=== PATIENT | female | born 1990 | race American Indian/Alaskan Native ===

== ENCOUNTER 2020-10-12 14:13 | Emergency (ER) | payer OTHER, MEDICAID ==
[2020-10-12 14:34] VITALS: BP 141/77
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
[2020-10-12 15:52] LABS: Bilirubin,Urine NEG (Negative); Blood,Urine NEG (Negative); Color,Urine Yellow (Yellow); Mucus,Urine FEW /HPF; Protein,Urine <15 mg/dL mg/dL (Negative); Urobilinogen,Urine < 2.0 mg/dL (<2.0)
[2020-10-12 16:16] LABS: Basophils % (Auto) 0.4 % (0.0-1.8); Eosinophils # (Auto) 0.1 K/mm3 (0.0-0.4); Hematocrit 32.3 % (30.3-42.9); Hemoglobin 10.7 gm/dl (10.1-14.3); Lymphocytes # (Auto) 1.4 K/mm3 (1.2-5.4); Lymphocytes % (Auto) 16.6 % (13.4-35.0); Mean Corpuscular HGB Conc 33 % (30-34); Mean Corpuscular Volume 98 fl (79-97); Monocytes # (Auto) 0.5 K/mm3 (0.0-0.8); Monocytes % (Auto) 6.4 % (0.0-7.3); Platelet Count 248 K/mm3 (140-440); Red Blood Count 3.31 M/mm3 (3.65-5.03); Red Cell Distribution Width 13.4 % (13.2-15.2)
[2020-10-12 16:25] LABS: Alanine Aminotransferase 10 units/L (7-56); Albumin 3.4 g/dL (3.9-5); Blood Urea Nitrogen 9 mg/dL (7-17); Calcium 8.5 mg/dL (8.4-10.2); Hemolysis Index 4
[2020-10-12 16:53] LABS: BUN/Creatinine Ratio 13
== END 2020-10-12 17:13 | disposition home or self-care (01) ==
LOC: ED 14:13
DX: O26.892 Other specified pregnancy related conditions, second trimester (principal); S39.012A Strain of muscle, fascia and tendon of lower back, initial encounter; S39.011A Strain of muscle, fascia and tendon of abdomen, initial encounter; Z3A.18 18 weeks gestation of pregnancy; Z79.1 Long term (current) use of non-steroidal anti-inflammatories (NSAID); Z79.2 Long term (current) use of antibiotics; Z79.899 Other long term (current) drug therapy; V49.49XA Driver injured in collision with other motor vehicles in traffic accident, initial encounter; Y93.89 Activity, other specified; Y92.89 Other specified places as the place of occurrence of the external cause; Y99.8 Other external cause status
CPT/HCPCS: 36415; 76805; 80053; 81001; 84702; 85025

== ENCOUNTER 2021-03-11 21:54 | Inpatient (IN) | payer MEDICAID ==
[2021-03-11] MEDS ORDERED: OXYTOCIN 10 UNIT/1 ML INJ ONE (21:57)
[2021-03-11] MEDS ORDERED: MINERAL OIL 30 ML ORAL LIQD ONE (21:57)
[2021-03-11] MEDS ORDERED: OXYTOCIN DRIP 30,000 MILLIUNITS/500 ML BAG IV ONE (22:03)
[2021-03-11] MEDS ORDERED: TERBUTALINE 1 MG/1 ML INJ SUB-Q PRN (22:19)
[2021-03-11] MEDS ORDERED: LIDOCAINE (2%) 20 MG/1 ML VIAL 20 ML MDV INFILTRATI ONE (22:19)
[2021-03-11] MEDS ORDERED: ePHEDrine SULFATE 50 MG/1 ML INJ IV PRN (22:19)
[2021-03-11] MEDS ORDERED: MINERAL OIL 30 ML ORAL LIQD PO PRN (22:19)
[2021-03-11] MEDS ORDERED: LACTATED RINGERS 1,000 ML IV SCH (22:30)
[2021-03-11] MEDS ORDERED: HYDROCORTISONE 25 MG RECTAL SUPP PR PRN (22:35)
[2021-03-11] MEDS ORDERED: LANOLIN/ZINC/DIMETHICONE (LANSINOH) 7 GM TP PRN (22:35)
[2021-03-11] MEDS ORDERED: WITCH HAZEL/ GLYCERIN PAD TP PRN (22:35)
[2021-03-11] MEDS ORDERED: MAGNESIUM HYDROXIDE (MOM) ORAL LIQD UDC PO PRN (22:35)
--- NOTE | 2021-03-11 22:39 | History and Physical Report ---
History of Present Illness Date of examination: 03/11/21 Date of admission: 03/11/21 21:56 Chief complaint: Contractions, leaking water, need to push History of present illness: 30 year old female presents to L&D with complaint of leaking of water and contractions. Patient received care at [facility] and partial records are available. EDC 03/10/2021. Patient has had 2 previous sections at term (2011 and 2015). significant for the following: trichomonas (treated), GBS bacteriuria, prior section times 2. labs are not available with exception of horizon test showed alpha thalassemia silent carrier. Past History Past Medical History: no pertinent history Past Surgical History: section (2 previous sections) [employer] History: trichomonas (treated during this ). denies: abnormal PAP smear, chlamydia, gonorrhea, hepatitis B, herpes, HIV, syphilis Family/Genetic History: none Social history: lives with family, full code. denies: smoking, alcohol abuse, prescription drug abuse, IV drug use - Obstetrical History Expected Date of Delivery: 03/10/21 Actual Gestation: 40 Week(s) 1 Day(s) : 3 Para: 2 Hx # Term Pregnancies: 2 Number of Pregnancies: 0 Spontaneous Abortions: 0 Induced : 0 Number of Living Children: 2 Medications and Allergies Allergies Allergy/AdvReac Type Severity Reaction Status Date / Time No Known Allergies Allergy Unverified 05/13/14 19:18 Home Medications Medication Instructions Recorded Confirmed Last Taken Type Vit Calc,Iron,Folic 1 each PO DAILY #30 tablet 09/01/16 03/11/21 Unknown Rx [ Vitamins] Active Meds: Active Medications Ephedrine Sulfate (Ephedrine Sulfate 50 Mg/1 Ml Inj) 10 mg IV Q2M PRN PRN Reason: Hypotension Lactated Ringer's (Lactated Ringers) 1,000 mls @ 125 mls/hr IV DIRECT SAAD Oxytocin/Sodium Chloride (Pitocin/Ns 30 Unit/500ml) 30 units in 500 mls @ 40 mls/hr IV TITR SAAD; Protocol Mineral Oil (Mineral Oil 30 Ml Oral Liqd) 30 ml PO QHS PRN PRN Reason: Constipation Terbutaline Sulfate (Terbutaline 1 Mg/1 Ml Inj) 0.25 mg SUB-Q ONCE PRN PRN Reason: Hyperstimulation/Hypertonicity Review of Systems All systems: negative - Vital Signs Vital signs: Vital Signs Pulse BP 92 H 144/80 03/11/21 22:08 03/11/21 22:08 Temp Pulse Resp BP Pulse Ox 80 143/93 03/11/21 22:23 03/11/21 22:23 - Physical Exam Abdomen: Positive: normal appearance, soft. Negative: distention, tenderness, guarding, rigidity Genitourinary (Female): Positive: normal external genitalia, normal perenium. Negative: perineal/vulvar lesions Vagina: Positive: other (thick meconium fluid noted) Uterus: Positive: enlarged. Negative: tender Anus/Rectum: Positive: normal perianal skin Extremities: Positive: normal. Negative: tenderness, edema - Obstetrical FHR: category 2 Uterine Contraction Monitor Mode: External Cervical Dilatation: 10 Cervical Effacement Percentage: 100 station: +2 Uterine Contraction Pattern: Regular Uterine Contraction Intensity: Strong/Firm Results Result Diagrams: 03/11/21 22:07 All other labs normal. Assessment and Plan A: at 40 weeks, 1 day gestation. Active labor; advanced cervical dilation. GBS positive. 2 previous cesaren sections. P: Admit. upon presentation to L&D (see delivery note).
--- NOTE | 2021-03-11 22:41 | Procedure Note ---
OB Delivery Note - Delivery Date of Delivery: 03/04/21 Surgeon: KAUR WHEELER Estimated blood loss: <100cc - Vaginal Delivery presentation: vertex Delivery position: OA Intrapartum events: meconium, precipitous labor- <3hr Delivery induction: none Delivery monitor: external FHT Route of delivery: Delivery placenta: spontaneous Delivery cord: 3 umbilical vessels Episiotomy: none Delivery laceration: none Anesthesia: none Delivery comments: A: Spontaneous vaginal delivery at 22:00 of liveborn male weighing 2.835 kg over intact perineum with apgars of 8/9. Baby was vigorous at and was placed skin to skin with mom right after delivery. Spontaneous cry and respirations. 3 vessel cord double clamped and cut and baby taken to radiant warmer for suctioning due to meconium stained amniotic fluid. Cord blood obtained. Spontaneous delivery of intact placenta and membranes. EBL <100 cc. Pitocin to IV fluids after delivery of placenta. Fundus firm and midline. No lacerations noted. Vaginal sweep negative. Sponge count correct. Mother and baby stable. Dr. Calderón notified of precipitous delivery.
[2021-03-11 22:58] LABS: Basophils % (Auto) 0.3 % (0.0-1.8); Eosinophils % (Auto) 0.1 % (0.0-4.3); Hematocrit 37.1 % (30.3-42.9); Hemoglobin 12.4 gm/dl (10.1-14.3); Lymphocytes # (Auto) 1.6 K/mm3 (1.2-5.4); Lymphocytes % (Auto) 15.2 % (13.4-35.0); Mean Corpuscular HGB Conc 34 % (30-34); Mean Corpuscular Volume 95 fl (79-97); Monocytes # (Auto) 1.1 K/mm3 (0.0-0.8); Monocytes % (Auto) 9.9 % (0.0-7.3); Platelet Count 332 K/mm3 (140-440); Red Cell Distribution Width 14.7 % (13.2-15.2)
[2021-03-11] MEDS ORDERED: OXYTOCIN DRIP 30 UNITS/500 ML BAG IV SCH (23:00)
[2021-03-11] MEDS: IBUPROFEN 600 MG TAB PO SCH (23:14)
[2021-03-11 23:22] LABS: Hepatitis C Virus Antibody Non-Reactive (NonReactive)
[2021-03-12] MEDS: HYDROcodone/ACETAMINOPHEN 5-325 MG TAB PO PRN ×2 (04:39→23:43)
[2021-03-12] MEDS: IBUPROFEN 600 MG TAB PO SCH ×3 (06:35→19:55)
[2021-03-12] MEDS: DOCUSATE SODIUM 100 MG CAP PO SCH ×2 (09:38→23:44)
[2021-03-12] MEDS ORDERED: medroxyPROGESTERone ACETATE 150 MG/ML SYRINGE IM ONE ×2 (11:31→17:00)
--- NOTE | 2021-03-12 11:40 | Progress Note ---
Assessment and Plan A: PP Day #1 Stable Smoker P: Follow Routine Orders D/C home per patient Request Depo Provera 150mg IM x 1 dose RTO in 3 Weeks Subjective - Subjective Date of service: 03/12/21 Patient reports: appetite normal, voiding normally, pain well controlled, flatus, ambulating normally, other (Patient ambulating outside to smoke) [place]: doing well, bottle feeding Objective - Vital Signs Latest vital signs: Vital Signs Temp Pulse Resp BP BP Pulse Ox 03/12/21 08:17 98.4 F 81 18 121/85 100 03/12/21 04:39 16 03/12/21 00:00 98.0 F 82 18 116/70 100 03/11/21 23:23 63 139/82 03/11/21 23:18 74 131/74 03/11/21 23:08 76 146/94 03/11/21 22:54 74 128/69 03/11/21 22:53 77 142/85 03/11/21 22:38 70 136/72 03/11/21 22:23 80 143/93 03/11/21 22:08 92 H 144/80 03/11/21 21:58 98.5 F Intake and Output 03/11/21 03/12/21 03/12/21 22:59 06:59 14:59 Output Total 275 Balance -275 Output: Urine 275 Void 275 Other: Total, Output Amount 275 Weight 83.915 kg - Exam Breasts: Present: normal Cardiovascular: Present: Regular rate Lungs: Present: Clear to auscultation, Normal air movement Abdomen: Present: normal appearance, soft, normal bowel sounds Uterus: Present: normal, firm, fundal height below umbilicus Extremities: Present: normal - Labs Labs: Abnormal lab results 03/11/21 Range/Units 22:07 [place] % (Auto) 9.9 H (0.0-7.3) % [place] # (Auto) 1.1 H (0.0-0.8) K/mm3 Seg Neutrophils % 74.5 H (40.0-70.0) % Seg Neutrophils # 8.0 H (1.8-7.7) K/mm3
--- NOTE | 2021-03-12 11:43 | Discharge Summary ---
Providers - Providers Date of Admission: 03/11/21 21:56 Date of discharge: 03/12/21 Attending physician: BRENNA WEINER MD Primary care physician: BRENNA WEINER MD Hospitalization Reason for admission: active labor Delivery: Episiotomy: none Laceration: none Other procedures: none complications: none Discharge diagnosis: IUP at term delivered [place] baby: male Condition at discharge: Good Disposition: DC-01 TO HOME OR SELFCARE Plan - Provider Discharge Summary Activity: routine, no sex for 6 weeks, no heavy lifting 4 weeks, no strenuous exercise Diet: routine Instructions: routine Additional instructions: [] Smoking cessation referral if applicable(refer to patient education folder for contact #) [] Refer to [facility] Booklet Call your doctor immediately for: * Fever > 100.5 * Heavy vaginal bleeding ( >1 pad per hour) * Severe persistent headache * Shortness of breath * Reddened, hot, painful area to leg or breast * Drainage or odor from incision. * Keep incision clean and dry at all times and follow doctor's instructions regarding bathing/showering - Follow up plan Follow up: BRENNA WEINER MD [Primary Care Provider] - 04/02/21
[2021-03-12 14:33] LABS: Hematocrit 33.9 % (30.3-42.9); Hemoglobin 11.1 gm/dl (10.1-14.3)
[2021-03-13] MEDS: IBUPROFEN 600 MG TAB PO SCH ×3 (01:15→12:22)
[2021-03-13] MEDS: DOCUSATE SODIUM 100 MG CAP PO SCH (12:22)
[2021-03-13 17:50] VITALS: BP 136/86
== END 2021-03-13 17:10 | disposition home or self-care (01) | DRG 775 ==
LOC: TRG 21:54 → LD 21:56 → OB 03-12 00:03
PROVIDERS: ADMIT Obstetrics & Gynecology; ATTEND Obstetrics & Gynecology
PROC: 10D07Z8 Extraction of Products of Conception, Other, Via Natural or Artificial Opening (ICD-10-PCS; principal; 2021-03-11)
DX: O99.824 Streptococcus B carrier state complicating childbirth (principal); O62.0 Primary inadequate contractions; O62.3 Precipitate labor; Z3A.40 40 weeks gestation of pregnancy; Z37.0 Single live birth; O77.0 Labor and delivery complicated by meconium in amniotic fluid; O99.334 Smoking (tobacco) complicating childbirth; F17.200 Nicotine dependence, unspecified, uncomplicated; Z20.822 Contact with and (suspected) exposure to COVID-19
CPT/HCPCS: 36415; 59025; 85014; 85018; 85025; 85027; 86592; 86706; 86762; 86803; 86850; 86900; 86901; 87806; 88307; 96360; G0378; J1050; J2270; J2590; J3410; U0003